=== PATIENT | female | born 1980 | race Caucasian/White ===

== ENCOUNTER 2020-04-05 10:37 | Emergency (ER) | payer OTHER, SELFPAY ==
--- NOTE | ~2020-04-05 | CT_ITS ---
EXAMINATION: CT abdomen pelvis wo con DATE: 04/05/2020 11:55 INDICATION: Flank pain and lower abdominal pain TECHNIQUE: Computed tomography (CT) of the abdomen and pelvis was performed without intravenous contr ast. Automated exposure control and iterative reconstruction technique were employed. The dose-length product was 591.43 mGy-cm. COMPARISON: None FINDINGS: Lung bases are clear. Heart size is normal. No pericardial or pleural effusion. Cholecystectomy clips at the gallbladder fossa. Liver, spleen, pancreas and bilateral adrenal glands are normal. Kidneys a nd ureters are normal with no urolithiasis, hydroureteronephrosis or perinephric/ureteral stranding. Bladder is normal. There is an approximately 1.7 cm likely subserosal fibroid arising from the left c ornual region of the anteverted and mildly retroflexed uterus. 2.4 cm right adnexal cyst/follicle. Le ft ovary is normal. Appendix is not visualized and likely post appendectomy with small suture line at the tip of the cecum. There are few scattered colonic diverticula with mild inflammatory stranding s urrounding a diverticulum at the distal descending colon consistent with diverticulitis. No extralumi nal gas, abscess or free intraperitoneal fluid. Tiny fat-containing umbilical hernia. No pathological ly enlarged abdominal or pelvic lymphadenopathy. Mild lower thoracic spondylosis. IMPRESSION: 1. Radiographically uncomplicated diverticulitis at the distal descending colon. No urolithiasis or o ther acute intra-abdominal/pelvic process. 2. 1.7 cm subserosal fibroid at the left uterine cornua. Reviewed, dictated and finalized at location A. IMPRESSION: 1. Radiographically uncomplicated diverticulitis at the distal descending colon . No urolithiasis or other acute intra-abdominal/pelvic process. 2. 1.7 cm subserosal fibroid at the left uterine cornua.
--- NOTE | ~2020-04-05 | XR_ITS ---
EXAMINATION: XR abdomen/kub 1V DATE: 04/05/2020 12:05 INDICATION: Pain in bladder/lower abdomen. Nausea and chills. TECHNIQUE: A supine view of the abdomen on 2 radiographs was obtained. COMPARISON: CT dated 04/05/2020 FINDINGS: No urolithiasis. Cholecystectomy clips in right upper quadrant. Suture line at the right lower quadra nt likely related to prior appendectomy. Nonspecific, nonobstructive bowel gas pattern with small chen unt of gas within a couple loops of nondilated small bowel in the left abdomen which could represent an ileus related to diverticulitis seen on the prior CT. Lung bases are clear. IMPRESSION: 1. Nonspecific bowel gas pattern which could represent a mild reactive ileus related to diverticuliti s evident on prior CT. Reviewed, dictated and finalized at location A. IMPRESSION: 1. Nonspecific bowel gas pattern which could represent a mild reactive ileus re lated to diverticulitis evident on prior CT.
[2020-04-05 10:51] VITALS: BP 118/78; PULSE 114; RESP 18; TEMP 37.1; O2SAT 98
[2020-04-05 11:08] LABS: Basophils Absolute Auto 0.1 K/mm3 (0.0-0.1); Basophils Percent Auto 0.4 % (0.2-1.2); Eosinophils Percent Auto 0.3 % (0-4.4); Hematocrit 46.7 % (37.0-47.0); Hemoglobin 15.6 g/dL (12.0-15.0); Immature Granulocyte Absolute 0.09 K/mm3 (0.00-0.031); Immature Granulocyte Percent A 0.6 % (0-0.5); Lymphocytes Absolute Auto 0.95 K/mm3 (0.9-3.2); Lymphocytes Percent Auto 6.8 % (18.3-44.2); Mean Corpuscular HGB Conc 33.4 g/dl (32-36); Mean Corpuscular Hemoglobin 29.2 pg (26-34); Mean Corpuscular Volume 87.3 fl (80-100); Mean Platelet Volume 10.2 fl (7.4-10.4); Monocytes Absolute Auto 0.1 K/mm3 (0.1-0.6); Monocytes Percent Auto 0.7 % (2.6-8.5); Neutrophils Absolute Auto 12.7 K/mm3 (1.3-6.7); Neutrophils Percent Auto 91.2 % (45.5-73.1); Platelet Count Result 334 k/mm3 (150-375); Red Blood Count 5.35 M/mm3 (4.2-5.4); Red Cell Distribution Width 12.6 % (11.5-14.5)
[2020-04-05 11:12] LABS: Add Urine Microscopic? YES; Appearance Urine Cloudy (Clear); Bacteria Urine 3+ /hpf; Bilirubin Urine Negative (Negative); Blood Urine Negative (Negative); Color Urine Red (Yellow); Glucose Urine UA Negative (Negative); Ketones Urine 1+ mg/dL (Negative); Leukocyte Esterase Ur Negative LEU/UL (Negative); Mucus Urine Rare /lpf; Nitrate Urine Negative (Negative); Protein Urine Negative (Negative); Specific Grav Ur 1.016 (1.001-1.035); Squamous Epithelial Cell Urine Many /hpf (Few); Urobilinogen Urine Negative mg/dL (<2.0)
[2020-04-05 11:21] LABS: Alanine Aminotransferase 35 U/L (4-35); Albumin Level 4.4 g/dL (3.5-5.1); Alkaline Phosphatase 77 U/L (38-126); Anion Gap 13 mmol/L (8-16); Aspartate Amino Transferase 25 U/L (14-36); Bilirubin,Total 0.6 mg/dL (0.2-1.3); Blood Urea Nitrogen 11 mg/dL (7-17); Calcium 8.7 mg/dL (8.4-10.2); Carbon Dioxide 26 mmol/L (22-30); Chloride 98 mmol/L (98-107); Estimated CRCL calculation 102 ml/min; Estimated Glomerular Filt Rate > 60; Glucose 123 mg/dL (65-105); Lipase 71 U/L (23-300); Potassium 3.9 mmol/L (3.4-5.0); Sodium 137 mmol/L (137-145)
[2020-04-05 11:29] VITALS: BP 126/88; PULSE 104; RESP 18; O2SAT 97
--- NOTE | 2020-04-05 11:34 | ED.ABDPAIN ---
HPI - Abdominal Pain General Chief Complaint: Urogenital-Female Stated Complaint: bladder hurts, nauseated Time Seen by Provider: 04/05/20 10:46 Source: patient Mode of arrival: ambulatory Limitations: no limitations History of Present Illness HPI narrative: Patient is a 40-year-old female who presents with kidney pain suprapubic discomfort and frequency and urgency of urination patient took a Zofran this morning because she experienced nausea patient denies similar occurrence in the past or vomiting diarrhea rectal bleeding or melena on arrival to emergency department patient resting comfortably in the room in no distress Related Data Allergies Allergy/AdvReac Type Severity Reaction Status Date / Time No Known Allergies Allergy Verified 04/05/20 10:55 Review of Systems Review of Systems: All systems reviewed & are unremarkable except as noted in HPI and below PMFSH Past Medical History Medical History Obese Surgical History Surgical History H/O section Social History Social History (Updated 04/05/20 @ 11:36 by Niko Edmonds PA-C) Smoking status: Never smoker Exam Narrative: Exam Narrative: GENERAL: Well-appearing, well-nourished, and in no acute distress. HEAD: Normocephalic, atraumatic. EYES: PERRLA and EOMI. ENT: Nares clear, no rhinorrhea or epistaxis. Mucous membranes moist. CHEST: Clear to auscultation. No respiratory distress. No wheezes rales or rhonchi HEART: Regular rate and rhythm. No murmur heard. Normal peripheral pulses. ABDOMEN: Soft, suprapubic and left lower abdominal tenderness, nondistended EXTREMITIES: Normal range of motion. No edema. SKIN: Warm, dry, no rash. NEURO: No focal deficits. Alert and oriented x3. PSYCH: Normal mood and affect. Course Course Emergency Course: Patient in the room with case findings treatment plan diagnosis agreeing to follow-up with her primary care diagnosed with diverticulitis was hydrated given medications patient notes she is feeling better with the interventions Vital Signs Vital signs: Vital Signs Temperature 98.8 F 04/05/20 10:51 Pulse Rate 114 H 04/05/20 10:51 Respiratory Rate 18 04/05/20 10:51 Blood Pressure 118/78 04/05/20 10:51 Pulse Oximetry 98 04/05/20 10:51 Temperature 98.8 F 04/05/20 10:51 Pulse Rate 104 H 04/05/20 11:29 Respiratory Rate 18 04/05/20 11:29 Blood Pressure 126/88 04/05/20 11:29 Pulse Oximetry 97 04/05/20 11:29 MDM - Abdominal Pain MDM Narrative Medical decision making narrative: Patient with uncomplicated diverticulitis in the room in no distress aware of case findings treatment plan and diagnosis agreeing to follow with primary care as instructed also provided with reasons to return afebrile nontoxic-appearing no distress without emesis Lab Data Result diagrams: 04/05/20 11:01 04/05/20 11:01 Labs: Lab Results 04/05/20 04/05/20 04/05/20 Range/Units 11:01 11:01 11:01 WBC 14.0 H (4.5-10.0) K/mm3 RBC 5.35 (4.2-5.4) M/mm3 Hgb 15.6 H (12.0-15.0) g/dL Hct 46.7 (37.0-47.0) % MCV 87.3 (80-100) fl MCH 29.2 (26-34) pg MCHC 33.4 (32-36) g/dl RDW 12.6 (11.5-14.5) % Plt Count 334 (150-375) k/mm3 MPV 10.2 (7.4-10.4) fl Immature Gran % (Auto) 0.6 H (0-0.5) % Neut % (Auto) 91.2 H (45.5-73.1) % Lymph % (Auto) 6.8 L (18.3-44.2) % Luce % (Auto) 0.7 L (2.6-8.5) % Eos % (Auto) 0.3 (0-4.4) % Baso % (Auto) 0.4 (0.2-1.2) % Lymph # (Auto) 0.95 (0.9-3.2) K/mm3 Luce # (Auto) 0.1 (0.1-0.6) K/mm3 Eos # (Auto) 0.0 (0-0.3) K/mm3 Baso # (Auto) 0.1 (0.0-0.1) K/mm3 Abs Immat Gran (auto) 0.09 H (0.00-0.031) K/mm3 Absolute Neuts (auto) 12.7 H (1.3-6.7) K/mm3 Absolute Nucleated RBC 0.0 (0.0-0.012) K/mm3 Nucleated RBC % 0.0 (0.0-0.2) % Sodi
[2020-04-05] MEDS: FAMOTIDINE 20 MG/2 ML VIAL IV PUSH (11:55)
[2020-04-05] MEDS: ONDANSETRON INJ 4 MG/2 ML VIAL IV PUSH (11:55)
[2020-04-05] MEDS: SODIUM CHLORIDE 0.9% IV 1,000 ML 999 ML IV CONT (11:56)
[2020-04-05 13:35] VITALS: BP 142/88; PULSE 88; RESP 16; O2SAT 97
== END 2020-04-05 13:35 | disposition home or self-care (01) ==
PROVIDERS: Emergency Medicine Emergency Medical Services; Emergency Provider Emergency Medicine
DX: K57.32 Diverticulitis of large intestine without perforation or abscess without bleeding (principal); E66.9 Obesity, unspecified; Z68.41 Body mass index [BMI] 40.0-44.9, adult; D25.9 Leiomyoma of uterus, unspecified
CPT/HCPCS: 36415; 74018; 74176; 80053; 81001; 81025; 83690; 85025; 96365; 96375; 99284; J0131; J2405; J7030

== ENCOUNTER 2022-03-24 08:35 | Emergency (ER) | payer OTHER, SELFPAY ==
--- NOTE | ~2022-03-24 | XR_ITS ---
EXAMINATION: XR knee LT 3V DATE: 03/24/2022 09:02 INDICATION: Left knee pain. Fall. TECHNIQUE: 3 views of left knee were obtained. COMPARISON: None. FINDINGS: Bone alignment is normal. No fracture. There is mild tricompartmental osteoarthritis charac terized by tiny osteophytes. No joint space narrowing. No knee joint effusion. IMPRESSION: 1. Mild left knee osteoarthritis. Reviewed, dictated and finalized at location A.
--- NOTE | ~2022-03-24 | XR_ITS ---
EXAMINATION: XR foot LT min 3V DATE: 03/24/2022 09:02 INDICATION: Left foot pain. Fall. TECHNIQUE: 4 views of left foot were obtained. COMPARISON: None. FINDINGS: Bone alignment is normal. No fracture. There is mild osteoarthritis of first metatarsophala ngeal joint and some of the interphalangeal and midfoot joints. There is an enthesophyte at plantar a spect of calcaneal tuberosity. IMPRESSION: 1. Mild polyarticular osteoarthritis. Reviewed, dictated and finalized at location A.
[2022-03-24 08:44] VITALS: BP 157/110; PULSE 80; RESP 16; TEMP 36; O2SAT 100
--- NOTE | 2022-03-24 08:47 | ED.GENADULT ---
HPI - General Adult General Chief complaint: Extremity Injury, Lower Stated complaint: INJURED L KNEE History of Present Illness HPI narrative: 42 y/o female. PMHx: MDD. Presents to [facility] today with acute complaints of LT knee and LT 3rd/4th toe pain, S/P Fall. Client reports to have suffered a mechanical fall at home, slipped on carpeted steps . -No prodromal deficits. -No closed head injury, neck pain, LOC. -Continued pain to LT knee and Toes. Mild relief w/home remedies. -No low back pain, loss of lower extremity sensation or control. -No open wounds. No additional acute c/o upon PE. Related Data Home Medications Medication Instructions Recorded Confirmed bupropion HCl 300 mg 24 hr tablet, 300 mg PO DAILY 03/24/22 03/24/22 extended release Allergies Allergy/AdvReac Type Severity Reaction Status Date / Time No Known Allergies Allergy Verified 03/24/22 08:44 Review of Systems Review of Systems: MUSCULOSKELETAL: LT knee & Foot pain. Denies acute back pain, additional joint pain, or myalgia. NEUROLOGIC: Denies numbness, or focal weakness. Remainder of ROS has been reviewed: Negative. PMFSH Past Medical History Medical History Obese Surgical History Surgical History H/O section Social History Social History Smoking status: Never smoker Exam Narrative: GENERAL: This is a well-nourished, well-developed adult, in no apparent distress. HEAD: normocephalic, atraumatic. EYES: PERRL. Sclera clear/white. EARS: External ears normal. NOSE: External nose normal. THROAT: Mucous membranes moist. NECK: Neck supple, non-tender without lymphadenopathy, masses or thyromegaly. CARDIOVASCULAR: Regular rate and rhythm without murmurs, gallops, or rubs. Strong pulses LLE, all sites. RESPIRATORY: Clear to auscultation. Breath sounds equal bilaterally. No crepitus. No flailing. GASTROINTESTINAL: Abdomen soft, non-tender, nondistended. No signs of traumatic abdomen. SKIN: warm, intact. With a mild residual amount of bruising, proximal LT 3/4th toe. No bruising at LT knee. No erythema, warmth. No open wounds. NEURO: Alert, active, and age appropriate. No focal neurologic deficits. Good sensation and discrimination BLE. No saddle parasthesia. EXTREMITIES: 1: Mild medial LT knee point tenderness. No obvious deformity or bony disturbance. She exhibits full flexion and extension at site, no laxity. ROM preserved. Able to bear weight w/o difficulty. 2: Mild bruising and point tenderness LT proximal 3/4th toes. No obvious deformity. ROM intact. Course Course Level of Care: Express Care Visit Vital Signs Vital signs: Vital Signs Temperature 36.0 C L 03/24/22 08:44 Pulse Rate 80 03/24/22 08:44 Respiratory Rate 16 03/24/22 08:44 Blood Pressure 157/110 H 03/24/22 08:44 Pulse Oximetry 100 03/24/22 08:44 Temperature 36.0 C L 03/24/22 08:44 Pulse Rate 80 03/24/22 08:44 Respiratory Rate 16 03/24/22 08:44 Blood Pressure 157/110 H 03/24/22 08:44 Pulse Oximetry 100 03/24/22 08:44 Medical Decision Making [facility] Narrative Medical decision making narrative: -Plain film radiology imaging reveals: 1: LT Knee: Non-acute. 2: LT Foot/Toes: Non-acute. -Client remains without neurovascular deficits. -Has been provided BALJIT in [facility] clinic today. -Additional continued home RICE regimen is advised. Timeline of anticipated recovery has been reviewed. -May alternate NSAID/Tylenol OTC PRN to aid with swelling reduction and pain. (No pre-existing contraindications have been identified). -PCP F/U 1 week is advised. -Consider additional OP imaging with persistence or failure to heal, as swelling may sometimes inhibit recognition of minimal bony disruption on plain [place]
== END 2022-03-24 09:41 | disposition home or self-care (01) ==
PROVIDERS: Emergency Provider Nurse Practitioner Adult Health; PCP Family Medicine
DX: S83.92XA Sprain of unspecified site of left knee, initial encounter (principal); S93.505A Unspecified sprain of left lesser toe(s), initial encounter; W10.9XXA Fall (on) (from) unspecified stairs and steps, initial encounter; E66.9 Obesity, unspecified; Z68.41 Body mass index [BMI] 40.0-44.9, adult
CPT/HCPCS: 73562; 73630; 99214; G0463